=== PATIENT | male | born 1935 | race Caucasian/White ===

== ENCOUNTER → 2017-02-09 | Outpatient (CLI) | payer OTHER ==
[~2017-02-09] MED LIST: ACEON4 MG PO; ADULT LOW DOSE81 MG PO; AMOXICILLIN500 M1 PO; APAP650 PO; ATROVENT HFA14 GM; ATROVENT HFA14 GM NASAL; AVAPRO300 MG PO; B COMPLETE1 EAC1 PO; CALTRATE-600 W1 EACH PO; CENTRUM SILVER1 EAC1 PO; EPLERENONE25 MG PO; FISHOIL; GLUCOPHAGE XR500 MG PO; GLUCOPHAGE500 MG PO; GLUCOVANCE 5-51 EACH PO; GLYBURID-METFO1 EAC2 PO; IPRATROPIUM BRO15 ML NASAL; JUICE PLUS PO; LANOXIN 0.120.125 M1 PO; LANTUS100 UNIT/M SUBQ; LORTAB 5 MG/5001 TA1 PO; LOVASTAT40; MULTIPLE VITAM1 EAC3 PO; PAXIL10 MG; PAXIL10 MG PO; REMERON15 M1 PO; RITALIN5 MG PO; SIMVASTATIN40 MG PO; TOPROL XL50 MG PO; UNICOMPLEX M TA1 TA1 PO; VITAMIN B-12500 MCG; VITAMIN B-12500 MCG PO; VITAMIN D1000 UNI1 PO; VITAMIN D3400 UNIT PO; VITAMINC500 PO; ZYPREXA2.5 MG PO
--- NOTE | ~2017-02-09 | EKG ---
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: EVE : 1935 Requested By: Dave Alcantar Order Number: [id number] MD: Grey Santos Measurements Intervals [place] Rate: 72 P: 26 IA: 264 QRS: -79 QRSD: 149 T: -32 QT: 384 QTc: 421 Interpretive Statements Sinus rhythm Prolonged IA interval Probable left atrial enlargement Right bundle branch block inferior infarct, age indeterminate Compared to ECG 03/23/2016 08:18:20 No significant changes Electronically Signed On 02-10-2017 8:47:03 CDT by Grey Santos [email or web address] <ELECTRONICALLY SIGNED> By: Grey Santos MD, [facility] 02/10/17 0847 132 132 Grey Santos MD, [facility] /EPI
== END | disposition home or self-care (01) ==
LOC: LITH 12:38
DX: N20.1 Calculus of ureter (principal); C49.4 Malignant neoplasm of connective and soft tissue of abdomen; I10 Essential (primary) hypertension; E78.00 Pure hypercholesterolemia, unspecified; I50.9 Heart failure, unspecified; E11.9 Type 2 diabetes mellitus without complications; G47.30 Sleep apnea, unspecified; F32.9 Major depressive disorder, single episode, unspecified; Z95.0 Presence of cardiac pacemaker; Z98.890 Other specified postprocedural states